=== PATIENT | female | born 1995 | race Two or more races ===

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

== ENCOUNTER 2021-05-12 08:00 | Emergency (ER) | payer BC ==
[~2021-05-12] VITALS: Ht 182.9 cm; Wt 88.5 kg
--- NOTE | 2021-05-12 08:10 | NUR ---
BIB RA FROM HOME C/O ANXIETY, NAUSEA, AND VOMITING 10 TIMES STARTING TODAY. PT REPORTS THAT SHE DID NOT TAKE HER ANXIETY MEDICATION FOR 2 DAYS BECAUSE IT RAN OUT. HX OF PANIC ATTACKS, MITRAL VALVE PROLAPSE. ADMITS DIAPHORESIS, YET FEELING COLD, AND FEELING LIKE SHE WILL FAINT. A&OX4, AMBULATORY, PT IS SHAKING AND ACTIVELY VOMITING. PULSES 2+ BILATERALLY. ON MONITOR, VITALS ARE STABLE, CONTINUING TO MONITOR.
--- NOTE | 2021-05-12 08:17 | NUR ---
seen by dr fried,waiting for orders
[2021-05-12] MEDS ORDERED: ALPRAZOLAM 0.5 MG TABLET ONE ×2 (08:27→08:39)
[2021-05-12] MEDS ORDERED: ONDANSETRON 4 MG TAB.RAPDIS ONE ×2 (08:27→08:39)
[2021-05-12] MEDS ORDERED: ALPRAZOLAM 0.5 MG TABLET PO ONE (08:30)
[2021-05-12] MEDS ORDERED: ONDANSETRON 4 MG TAB.RAPDIS PO ONE (08:30)
[2021-05-12] MEDS ORDERED: ALPR1TAB2 PO (08:34)
--- NOTE | 2021-05-12 09:01 | NUR ---
Patient discharged to home in stable condition. Written and verbal after care instructions given. Patient verbalizes understanding of instruction.
[2021-05-12 09:02] VITALS: BP 120/70
== END 2021-05-12 09:04 | disposition home or self-care (01) ==
LOC: ER 08:03
DX: F41.0 Panic disorder [episodic paroxysmal anxiety] (principal)
CPT/HCPCS: 99283; Q0162

== ENCOUNTER 2021-10-26 20:13 | Emergency (ER) | payer BC ==
[~2021-10-26] VITALS: Ht 182.9 cm; Wt 83.9 kg
[~2021-10-26 20:13] MED LIST: ALPR1TAB2 PO
[2021-10-26] MEDS ORDERED: IV NS 0.9% 1,000 ML BAG IV ONE (21:30)
[2021-10-26] MEDS ORDERED: KETOROLAC TROMETHAMINE INJ 30 MG/ML VIAL IV ONE (21:30)
[2021-10-26] MEDS ORDERED: ONDANSETRON HCL/PF 4 MG/2 ML VIAL IVP ONE (21:30)
[2021-10-26] MEDS ORDERED: FAMOTIDINE/PF INJ 20 MG/2 ML VIAL IV ONE ×2 (21:30→21:38)
[2021-10-26] MEDS ORDERED: KETOROLAC TROMETHAMINE 15 MG/ML VIAL ONE (21:38)
[2021-10-26] MEDS ORDERED: ONDANSETRON HCL/PF 4 MG/2 ML VIAL ONE (21:39)
[2021-10-26 21:46] LABS: BASOPHILS % (AUTO) 0.2 % (0.0-2.0); EOSINOPHILS % (AUTO) 0.1 % (0.0-6.0); HEMATOCRIT 36 % (33-45); LYMPHOCYTES # (AUTO) 0.2 K/uL (0.8-4.8); LYMPHOCYTES % (AUTO) 4.2 % (20.0-44.0); MEAN CORPUSCULAR HGB CONC 33 g/dl (31.0-36.0); MEAN CORPUSCULAR VOLUME 83 fL (82-100); MONOCYTES # (AUTO) 0.5 K/uL (0.1-1.30); MONOCYTES % (AUTO) 9.5 % (2.0-12.0); NEUTROPHILS # (AUTO) 4.5 K/uL (1.8-8.9); PLATELET COUNT (AUTO) 192 K/uL (150-450); RED BLOOD CELL COUNT(AUTO) 4.35 MIL/uL (4.0-5.2); WHITE BLOOD COUNT (AUTO) 5.3 K/uL (4.3-11.0)
[2021-10-26 22:05] LABS: CALCIUM, SERUM 9.4 mg/dL (8.5-10.1); POTASSIUM 3.2 mmol/L (3.5-5.1)
[2021-10-26 22:10] LABS: ALBUMIN 4.6 g/dL (3.4-5.0); BILIRUBIN,DIRECT 0.3 mg/dL (0.0-0.2); BILIRUBIN,TOTAL 1.2 mg/dL (0.2-1.0); TOTAL PROTEIN, SERUM 7.5 g/dL (6.4-8.2)
[2021-10-26] MEDS ORDERED: POTASSIUM CHLORIDE 20 MEQ TAB.PRT.SR PO ONE ×2 (22:30→22:56)
[2021-10-26] MEDS ORDERED: ONDA4TAB5 PO (23:01)
[2021-10-26] MEDS ORDERED: OSEL75CA18 PO (23:01)
[2021-10-26] MEDS ORDERED: IBUP-1955 PO (23:21)
[2021-10-26 23:37] VITALS: BP 138/61
== END 2021-10-27 00:14 | disposition home or self-care (01) ==
LOC: ER 20:14
DX: R50.9 Fever, unspecified (principal); Z20.822 Contact with and (suspected) exposure to COVID-19; F41.9 Anxiety disorder, unspecified; Z79.899 Other long term (current) drug therapy; R11.2 Nausea with vomiting, unspecified; I34.1 Nonrheumatic mitral (valve) prolapse
CPT/HCPCS: 36415; 80048; 80076; 85025; 87426; 87804; 96361; 96374; 96375; 99284; C9803; J1885; J2405; J3490; J7030

== ENCOUNTER 2023-02-14 23:08 | Emergency (ER) | payer BC ==
[~2023-02-14] VITALS: Ht 182.9 cm; Wt 79.4 kg
[~2023-02-14 23:08] MED LIST changes: +IBUP-1955 PO; +ONDA4TAB5 PO
[2023-02-15] MEDS ORDERED: ONDANSETRON HCL/PF 4 MG/2 ML VIAL ONE (00:52)
[2023-02-15] MEDS ORDERED: ACETAMINOPHEN ES 500 MG TABLET ONE (00:53)
[2023-02-15] MEDS ORDERED: ONDANSETRON HCL/PF 4 MG/2 ML VIAL IVP ONE (01:00)
[2023-02-15] MEDS ORDERED: IV NS 0.9% 1,000 ML BAG IV ONE ×2 (01:00)
[2023-02-15] MEDS ORDERED: ACETAMINOPHEN ES 500 MG TABLET PO ONE (01:00)
[2023-02-15] MEDS ORDERED: KETOROLAC TROMETHAMINE INJ 30 MG/ML VIAL IV ONE (01:00)
[2023-02-15] MEDS ORDERED: LEVOFLOXACIN 500 MG /D5W 100ML 500 MG/100 ML PIGGYBACK IV ONE (01:00)
[2023-02-15] MEDS ORDERED: LEVOFLOXACIN 500 MG /D5W 100ML 100 ML IV ONE (01:14)
[2023-02-15] MEDS ORDERED: KETOROLAC TROMETHAMINE INJ 30 MG/ML VIAL ONE (01:21)
[2023-02-15 01:47] LABS: BASOPHILS % (AUTO) 0.2 % (0.0-2.0); EOSINOPHILS % (AUTO) 0.3 % (0.0-6.0); HEMATOCRIT 37 % (33-45); LYMPHOCYTES % (AUTO) 9.2 % (20.0-44.0); MEAN CORPUSCULAR HEMOGLOBIN 27 PG (26.0-33.0); MEAN CORPUSCULAR HGB CONC 32 g/dl (31.0-36.0); MEAN CORPUSCULAR VOLUME 83 fL (82-100); MONOCYTES # (AUTO) 0.6 K/uL (0.1-1.30); MONOCYTES % (AUTO) 5.8 % (2.0-12.0); NEUTROPHILS # (AUTO) 8.8 K/uL (1.8-8.9); NEUTROPHILS % (AUTO) 84.5 % (43.0-81.0); PLATELET COUNT (AUTO) 257 K/uL (150-450); RED BLOOD CELL COUNT(AUTO) 4.49 MIL/uL (4.0-5.2); RED CELL DISTRIBUTION WIDTH 13.6 % (11.5-15.0); WHITE BLOOD COUNT (AUTO) 10.4 K/uL (4.3-11.0)
[2023-02-15 02:01] LABS: ALBUMIN 4.2 g/dL (3.4-5.0); BILIRUBIN,DIRECT 0.2 mg/dL (0.0-0.2); CALCIUM, SERUM 9.6 mg/dL (8.5-10.1); CREATININE 0.6 mg/dL (0.6-1.3); POTASSIUM 3.5 mmol/L (3.5-5.1); TOTAL PROTEIN, SERUM 7.6 g/dL (6.4-8.2)
[2023-02-15 02:03] LABS: LACTIC ACID 0.6 mmol/L (0.4-2.0)
[2023-02-15 03:29] LABS: ADD URINE CULTURE YES; APPEARANCE,URINE TURBID (CLEAR); BACTERIA,URINE Moderate /HPF (None Seen); BILIRUBIN,URINE NEGATIVE (NEGATIVE); BLOOD, URINE 2+ Ery/uL (NEGATIVE); COLOR,URINE YELLOW (YELLOW); KETONES,URINE 3+ mg/dL (NEGATIVE); LEUKOCYTE ESTERASE ,URINE 3+ (NEGATIVE); NITRITE, URINE POSITIVE (NEGATIVE); PROTEIN,URINE NEGATIVE (NEGATIVE); SQUAMOUS EPITHELIAL CELL,UR Rare /HPF (None Seen); UGLUCOSE NEGATIVE (NEGATIVE)
[2023-02-15] MEDS ORDERED: IBUP-1953 PO (04:42)
[2023-02-15] MEDS ORDERED: LEVO500T90 PO (04:42)
[2023-02-15 04:55] VITALS: BP 121/72; TEMP 98.5; O2SAT 99
== END 2023-02-15 04:55 | disposition home or self-care (01) ==
LOC: ER 23:13
DX: N12 Tubulo-interstitial nephritis, not specified as acute or chronic (principal); R10.30 Lower abdominal pain, unspecified; F41.9 Anxiety disorder, unspecified; F17.200 Nicotine dependence, unspecified, uncomplicated; Z79.899 Other long term (current) drug therapy; Z60.2 Problems related to living alone
CPT/HCPCS: 99285; 74176; 96365; 96375; 85025; 80048; 87040 ×2; 87086; 83605; 80076; 81001; 36415; 84702; J1885; J2405; J7030; J1956

== ENCOUNTER 2024-01-18 12:10 | Emergency (ER) | payer BC ==
[~2024-01-18] VITALS: Ht 182.9 cm; Wt 74.8 kg
[~2024-01-18 12:10] MED LIST changes: +IBUP-1953 PO; +LEVO500T90 PO
[2024-01-18 12:17] VITALS: BP 134/72; TEMP 98
[2024-01-18 13:45] VITALS: O2SAT 100
[2024-01-18] MEDS ORDERED: LIDOCAINE 5% (PATCH) 1 EA PATCH TP SCH (14:00)
[2024-01-18] MEDS ORDERED: CYCLOBENZAPRINE 10 MG TABLET PO ONE (14:00)
[2024-01-18] MEDS ORDERED: KETOROLAC TROMETHAMINE 15 MG/ML VIAL IM ONE (14:00)
== END 2024-01-18 13:46 | disposition home or self-care (01) ==
LOC: ER 12:14
DX: R21 Rash and other nonspecific skin eruption (principal); F17.200 Nicotine dependence, unspecified, uncomplicated; Z79.1 Long term (current) use of non-steroidal anti-inflammatories (NSAID); Z79.899 Other long term (current) drug therapy; Z60.2 Problems related to living alone; Z88.5 Allergy status to narcotic agent